=== PATIENT | male | born 1985 | race Asian ===

== ENCOUNTER 2025-09-13 19:31 | Emergency (ER) | payer BC ==
[~2025-09-13] VITALS: Ht 185.4 cm; Wt 90.6 kg
[2025-09-13 19:35] VITALS: O2SAT 98
[2025-09-13 20:01] LABS: BASOPHILS % 0.5 % (0.0-2.0); EOSINOPHILS % 1.3 % (0.0-5.0); HEMATOCRIT. 39.6 % (42.0-52.0); HEMOGLOBIN. 13.4 g/dL (14.0-18.0); LYMPHOCYTES % 29.7 % (20.0-50.0); MEAN PLATELET VOLUME 8.5 fl (7.4-10.4); MONOCYTES % 7.3 % (2.0-8.0); NEUTROPHILS % 61.2 % (40.0-76.0); PLATELET 261 x1000/uL (130-400); RED BLOOD CELL COUNT 4.32 mill/uL (4.7-6.1); RED CELL DISTRIBUTION WIDTH 13.4 % (11.6-14.6)
[2025-09-13 20:12] LABS: COLOR URINE YELLOW (YELLOW); GLUCOSE URINE NEGATIVE (NEGATIVE); KETONES URINE NEGATIVE (NEGATIVE); LEUKOCYTE ESTERASE URINE 2+ (NEGATIVE); NITRITE URINE POSITIVE (NEGATIVE); OCCULT BLOOD URINE NEGATIVE (NEGATIVE); PH URINE 7.0 (4.5-8.0); PROTEIN URINE NEGATIVE (NEGATIVE); SPECIFIC GRAVITY URINE 1.020 (1.005-1.030); UROBILINOGEN URINE 0.2 E.U./dL (0.2-1.0)
[2025-09-13 20:13] LABS: CREATININE 1.1 mg/dL (0.6-1.3); UREA NITROGEN BLOOD 7 mg/dL (9-23)
[2025-09-13 20:14] LABS: TROPONIN I HIGH SENSITIVITY < 4 ng/L (3.0-53)
[2025-09-13 20:56] LABS: CLARITY URINE SL HAZY (CLEAR)
[2025-09-13 20:57] LABS: BACTERIA URINE 3+; RBC URINE NONE SEEN /hpf (0-2); SQUAMOUS EPITHELIAL CELL URINE NONE SEEN /lpf (RARE/1+); WBC URINE 15-25 /hpf (0-2)
[2025-09-13] MEDS ORDERED: P20 MT (21:28)
[2025-09-13] MEDS ORDERED: NAPR-1495 MT (21:28)
[2025-09-13] MEDS ORDERED: LIDO1ADH71 TOP (21:28)
[2025-09-13] MEDS: LIDOCAINE 5% PATCH TOP SCH (21:32)
[2025-09-13] MEDS: NAPROXEN 250MG TABLET PO ONE (21:32)
[2025-09-13 21:42] VITALS: BP 127/66; PULSE 68; RESP 16; TEMP 36.8; O2SAT 97
== END 2025-09-13 21:47 | disposition home or self-care (01) ==
LOC: ER 19:31
DX: M94.0 Chondrocostal junction syndrome [Tietze] (principal); Z79.899 Other long term (current) drug therapy
CPT/HCPCS: 36415; 71045; 80048; 81003; 84484; 85025; 87077; 87186; 93005; 99285